=== PATIENT | female | born 1950 | race Caucasian/White ===

== ENCOUNTER 2018-09-10 11:01 | Day surgery (SDC) | payer MEDICARE, OTHER ==
[2018-09-04 11:56] LABS: HEMATOCRIT 43.8 % (36.0-47.0); HEMOGLOBIN 15.6 g/dL (12.0-15.5); MEAN CORPUSCULAR HGB CONC 35.7 g/dL (32.0-36.0); MEAN CORPUSCULAR VOLUME 87 fl (80-97); PLATELET COUNT 192 10^3/uL (150-450); RED BLOOD COUNT 5.05 10^6/uL (3.72-5.28); RED CELL DISTRIBUTION WIDTH 12.7 % (11.5-14.0); WHITE BLOOD COUNT 6.3 10^3/uL (4.0-10.5)
[~2018-09-10 11:01] MED LIST: ACETAMINOPHEN 325 MG TABLET PO PRN; LACTATED RINGERS 1000 ML IV PRN; LIDOCAINE 0.5% INJ-PF (5 MG/ML) 50 ML SDV SUBCUT PRN; LIDOCAINE 2% INJ-PF (20 MG/ML) 10 ML AMPUL ONE; PROPOFOL INJ 200 MG/20 ML VIAL IV ONE
[2018-09-10] MEDS ORDERED: MIDAZOLAM 2 MG/2 ML INJ ONE (11:20)
--- NOTE | 2018-09-10 12:26 | Discharge Summary ---
Discharge Summary (SDC) - Discharge Final Diagnosis: screening colonoscopy Date of Surgery: 09/10/18 Discharge Date: 09/10/18 Condition: Stable Treatment or Instructions: [facility] [place] [id number] POST ENDOSCOPY DISCHARGE INSTRUCTIONS 1. Diet: Start clear liquids that add regular diet as tolerated. 2. Resume all preoperative medications. All oral anticoagulants and aspirins can be resumed 24 hours after procedure. 3. If a polypectomy was performed some bleeding per rectum may occur. This should stop within 3 days. If not, please contact the office. 4. If you had a colonoscopy you may experience some bloating and delayed return of normal bowel function for several days, your regular bowel movement pattern should resume within a week. 5. Please contact [facility] at to make an appointment with Dr. Rodgers for 1 to 3 weeks following procedure. 6. If you have any questions or concerns regarding your care,treatment plan or follow up, please contact our office. . Referrals: JALYN ZIMMER MD [Primary Care Provider] - Discharge Activity: No Lifting Over 10 Pounds, Walk Frequently Report the Following to Your Physician Immediately: Nausea, Vomiting, Increase in Pain, Fever over 101 Degrees, Unusual Bleeding, Drainage-Foul Smelling
--- NOTE | 2018-09-10 12:31 | Operative Report ---
Operative Report DATE OF SURGERY: 09/10/18 PREOPERATIVE DIAGNOSIS: 1. Abdominal pain. 2. Diarrhea. 3. Screening for c olon carcinoma POSTOPERATIVE DIAGNOSIS: Same with. 1. Mild chronic gastritis. 2. Internal and external hemorrhoids OPERATION: 1. Esophagogastroduodenoscopy with random biopsy of gastric antrum. 2. Total colonoscopy to cecum with photo documentation random biopsy of sigmoid colon SURGEON: GERONIMO GARCIA ANESTHESIA: LMAC TISSUE REMOVED OR ALTERED: bxs COMPLICATIONS: none ESTIMATED BLOOD LOSS: scant INTRAOPERATIVE FINDINGS: see below PROCEDURE: Patient was taken to the preop holding area the main operating room where LMAC anesthesia was induced. Monitoring devices were attached, and upper endoscopy performed. Surgical plan surgical timeout were conducted The flexible adult upper endoscope was advanced to the oropharynx, down the esophagus through the stomach into the duodenum. This was an excellent study, well-tolerated by the patient. The first and second portion of the duodenum were normal; the scope was withdrawn to the pylorus which was normal. No evidence of peptic ulcer disease. There is mild chronic gastritis. A random biopsy of the gastric antrum was performed with a cold forceps device, bleeding minimal. The remainder of the stomach was unremarkable. The scope was retroflexed in the stomach looking at the gastroesophageal junction, and only mild hiatal hernia identified. Scope was withdrawn through the GE junction. The Z line was at approximately the meters from the incisor. There was no evidence of esophageal stricture, esophagitis, or varices. The scope was withdrawn with the patient oropharynx. She tolerated procedure well. Arrangements were now made for colonoscopy. Obtaining informed consent the patient was taken from the preoperative holding area to the main endoscopy suite where monitoring devices were attached to the patient. Plan and surgical timeout were conducted The patient was placed in the left lateral decubitus position with knees to chest. A perianal examination was performed. There was no visible or palpable anorectal pathology. There were in fact extensive, floppy internal/external hemorrhoids but no evidence of thrombosis. Sphincter tone was felt to be normal. The flexible adult colonoscope was advanced through the anal rectal canal, all the way to the cecum. . Visualization of the cecum was achieved and the ileocecal valve, the appendiceal orifice and transillumination of the anterior abdominal wall. This was an excellent study on the well-prepped bowel. The colonoscope was withdrawn slowly and methodically checked and the mucosa carefully. There was no evidence of tumor, stricture, bleeding or polyp. There was no evidence of diverticuloses. A random biopsy was chosen of the left colon, performed with a cold forceps device. Bleeding was minimal. The scope was slowly withdrawn through the anal rectal canal. Complete visualization of the rectum was achieved with photodocumentation. The scope was withdrawn to the patient's anus. The patient tolerated the procedure well and was taken to the recovery area in stable condition. Per surveillance guidelines, patient be appropriate candidate for follow-up colonoscopy in 10 years, or sooner if any symptoms develop.
[2018-09-10 14:22] VITALS: BP 161/79
== END 2018-09-10 14:25 | disposition home or self-care (01) ==
LOC: OROUT 11:01
PROVIDERS: ATTEND Surgery
DX: K29.50 Unspecified chronic gastritis without bleeding (principal); K64.8 Other hemorrhoids; K64.4 Residual hemorrhoidal skin tags; R19.7 Diarrhea, unspecified; I10 Essential (primary) hypertension; F17.210 Nicotine dependence, cigarettes, uncomplicated; Z79.01 Long term (current) use of anticoagulants; Z88.1 Allergy status to other antibiotic agents; Z87.11 Personal history of peptic ulcer disease; Z79.82 Long term (current) use of aspirin; Z79.899 Other long term (current) drug therapy
CPT/HCPCS: 43239; 45380; 36415; 85027; 88342 ×2; 88305 ×2; J2250; J2704; J3490; 813

== ENCOUNTER → 2019-05-28 | Outpatient (CLI) | payer MEDICARE, OTHER ==
[2019-05-28 10:08] LABS: CRYPTOSPORIDIUM PARVUM AG NEGATIVE (NEGATIVE); GIARDIA LAMBLIA AG NEGATIVE (NEGATIVE)
[2019-05-28 10:16] LABS: C DIFFICILE GDH NEGATIVE (NEGATIVE)
== END ==
LOC: LAB 08:49
PROVIDERS: ATTEND Internal Medicine
DX: R19.7 Diarrhea, unspecified (principal)
CPT/HCPCS: 86403; 87045; 87177; 87205; 87324; 87329; 87449